=== PATIENT | male | born 1965 | race African-American/Black ===

== ENCOUNTER → 2016-12-13 | Outpatient (CLI) | payer OTHER, BC ==
[2016-12-13 11:12] LABS: PARTIAL THROMBOPLASTIN TIME 42.9 SEC (23.5-35.8); PROTHROMBIN TIME 21.9 SEC (11.4-15.4)
== END ==
LOC: OD 09:58
PROVIDERS: ATTEND Family Medicine
DX: Z79.01 Long term (current) use of anticoagulants (principal)
CPT/HCPCS: 36415; 85610; 85730

== ENCOUNTER → 2018-08-12 | Outpatient (CLI) | payer BC ==
--- NOTE | 2018-08-12 17:10 | XCELERA REPORT ---
[address] [facility] [address] Lower Extremity Venous Evaluation Procedure: Color flow and duplex imaging bilaterally of the veins of the lower extremities as well as the Common Femoral veins. Right Sided Venous Evaluation Normal vessel filling wall to wall, compression and augmentation as well as Colour flow down to the infrageniculate veins. Left Sided Venous Evaluation Intraluminal trabecula seen in the Popliteal vein on gray scale and lour flow. Normal flow around these. Otherwise normal vessel filling wall to wall, compression and augmentation as well as Colour flow down to the infrageniculate veins. Interpretation Summary No duplex evidence of DVT or obstruction in the bilateral lower extremities. Intra luminal scar on left , as note, likely a residual of prior DVT. Name: BRIANA AYALA Age: 52 yrs Gender: Male : 1965 Patient Status: Outpatient Patient Location: Study Date: 08/12/2018 01:12 PM Reason For Study: PAIN IN BOTH LEGS Ordering Physician: MAURICIO ORTIZ Performed By: Chelly Eller : MAURICIO ORTIZ > Ray Schroeder
== END ==
LOC: SP 12:39
PROVIDERS: ATTEND Family Medicine
DX: M79.605 Pain in left leg (principal); M79.604 Pain in right leg
CPT/HCPCS: 93970

== ENCOUNTER 2018-09-20 13:13 | Emergency (ER) | payer BC ==
[2018-09-20 13:24] VITALS: BP 158/98
[2018-09-20] MEDS ORDERED: IBUPROFEN 800 MG TABLET PO ONE (13:55)
--- NOTE | 2018-09-20 14:16 | ER Document Report ---
HPI - HPI Patient complains to provider of: Bilateral shoulder pain Time Seen by Provider: 09/20/18 13:45 Pain Level: 2 Context: Patient is a 52-year-old male history of bilateral rotator cuff injuries with repair. States he has bilateral shoulder pain for the last couple of days. 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 States a few days ago he was lifting a large piece of metal over his head. States he feels as though the pain started after that incident. Patient states he has pain in bilateral shoulders more so when he tries to raise his arms. Patient's denying any numbness or tingling in any extremity. Patient's denying any neck pain or back pain. - CONSTITUTIONAL Constitutional: DENIES: Fever, Chills - NEURO Neurology: DENIES: Headache, Weakness, Vision blurred, Dizzinesss / Vertigo - CARDIOVASCULAR Cardiovascular: DENIES: Chest pain - RESPIRATORY Respiratory: DENIES: Trouble Breathing, Coughing - MUSCULOSKELETAL Musculoskeletal: REPORTS: Extremity pain - bilateral shoulder pain Past Medical History - General Information source: Patient - Social History Smoking Status: Never Smoker Family History: Reviewed & Not Pertinent Patient has suicidal ideation: No Patient has homicidal ideation: No - Past Medical History Cardiac Medical History: Reports: Hx Hypertension Renal/ Medical History: Denies: Hx Peritoneal Dialysis Past Surgical History: Reports: Hx Orthopedic Surgery - drake. shoulders. left hand. left foot - Immunizations Hx Diphtheria, Pertussis, Tetanus Vaccination: Yes Vertical Provider Document - CONSTITUTIONAL Agree With Documented VS: Yes Notes: GENERAL: Alert, interacts well. No acute distress. HEAD: Normocephalic, atraumatic. EYES: Pupils equal, round, and reactive to light. Extraocular movements intact. ENT: Oral mucosa moist, tongue midline. NECK: Full range of motion. Supple. Trachea midline. LUNGS: Clear to auscultation bilaterally, no wheezes, rales, or rhonchi. No respiratory distress. HEART: Regular rate and rhythm. No murmur ABDOMEN: Soft, non-tender. Non-distended. Bowel sounds present in all 4 quadrants. EXTREMITIES: Moves all 4 extremities spontaneously. No edema, normal radial and dorsalis pedis pulses bilaterally. No cyanosis. Decreased range of motion noted bilateral shoulder secondary due to pain. 5 out of 5 strength noted all 4 extremities. Patient has full range of motion bilateral shoulders passive not active. No erythema, ecchymosis, crepitus about bilateral shoulders. BACK: no cervical, thoracic, lumbar midline tenderness. No saddle anesthesia, normal distal neurovascular exam. NEUROLOGICAL: Alert and oriented x3. Normal speech. cranial nerves II through XII grossly intact. PSYCH: Normal affect, normal mood. SKIN: Warm, dry, normal turgor. No rashes or lesions noted. - INFECTION CONTROL TRAVEL OUTSIDE OF THE [place] IN LAST 30 DAYS: No Course - Re-evaluation Re-evalutation: 09/20/18 14:51 Shoulder X-Ray 09/20/18 13:55 IMPRESSION: Postsurgical changes of both shoulders. Bilateral AC arthrosis. Discussed close follow-up with orthopedics for continued care. Discussed frozen shoulder should he attempts to buy an immobilizer [id number]. Discussed shoulder exercises [id number] Tylenol Motrin. At this time will discharge with return precautions and follow-up recommendations. Verbal discharge instructions given a the bedside and opportunity for questions given. Medication warnings reviewed. Patient is in agreement with this plan and has verbalized understanding of return precautions and the need for primary care follow-up in the next 24-72 hours. This medical record was dictated with voice recognizing software. There may be grammatical, syntax errors that are unintended. - Vital Signs Vital signs: Temp Pulse Resp BP Pulse Ox 98.7 F 101 H 20 158/98 H 96 09/20/18 13:23 09/20/18 13:23 09/20/18 13:23 09/20/18 13:23 09/20/18 13:23 Discharge - Discharge Clinical Impression: Shoulder pain, bilateral Qualifiers: Chronicity: acute Qualified Code(s): M25.511 - Pain in right shoulder Condition: Stable Disposition: HOME, SELF-CARE Instructions: Exercise Program for the Shoulder ([facility]), Shoulder Injury ([facility]) Additional Instructions: As we discussed x-rays of bilateral shoulders revealed no signs of broken bones. Please make sure you follow-up with orthopedics, phone numbers will be provided in this packet. Please also make sure taking [id number] Tylenol or Motrin for generalized pain. Please return to the emergency department for any further concerns. Shoulder Injury You have injured your shoulder. This usually results from stretching or tearing of the tendons during trauma. Time and protection are required in order to heal properly. Many injuries are quite disabling, and should be taken seriously. Initial treatment includes cold packs and a sling to rest the shoulder. The physician has assessed the seriousness of your injury, and has outlined a treatment plan. Understand that this treatment may change, depending on how you progress. If a re-examination was recommended, it is important that you follow up as instructed. Some shoulder injuries (such as partial tear of the rotator cuff) are only suspected after you've failed to improve. Call us if there's severe pain, numbness, or loss of function. Forms: Return to Work Referrals: MAURICIO ORTIZ MD [Primary Care Provider] - Follow up as needed WILMER TIDWELL MD [ACTIVE STAFF] - Follow up as needed
--- NOTE | 2018-09-20 14:30 | RADIOLOGY REPORT (SQ) ---
EXAM DESCRIPTION: SHOULDER BILAT 2 OR MORE VIEWS COMPLETED DATE/TIME: 09/20/2018 2:15 pm REASON FOR STUDY: pain COMPARISON: None. NUMBER OF VIEWS: Three views. TECHNIQUE: Internal rotation, external rotation, and Y view images acquired of both shoulders. LIMITATIONS: None. FINDINGS: Right shoulder : Postsurgical changes of the right humerus. Right AC arthrosis. Calcifications superior to the gleno humeral joint with loose bodies not excluded. Left shoulder: Postsurgical changes left shoulder. Left AC arthrosis. Subluxation of left humeral head superiorly consistent with chronic rotator cuff degeneration. Peritendinitis calcarii of left shoulder. IMPRESSION: Postsurgical changes of both shoulders. Bilateral AC arthrosis. TECHNICAL DOCUMENTATION: JOB ID: [id number] [employer]- All Rights Reserved Reading location - IP/workstation name: [email or web address]
== END 2018-09-20 14:50 | disposition home or self-care (01) ==
LOC: ER 13:13
DX: M25.511 Pain in right shoulder (principal); M25.512 Pain in left shoulder; I10 Essential (primary) hypertension
CPT/HCPCS: 99283

== ENCOUNTER 2018-10-26 11:08 | Emergency (ER) | payer BC ==
[2018-10-26] MEDS ORDERED: FAMOTIDINE 20 MG TABLET PO ONE (11:50)
[2018-10-26] MEDS ORDERED: PREDNISONE 20 MG TABLET PO ONE (11:50)
--- NOTE | 2018-10-26 11:52 | ER Document Report ---
HPI - HPI Patient complains to provider of: Hives Time Seen by Provider: 10/26/18 11:41 Onset: Yesterday Onset/Duration: Better Pain Level: 0 Context: Patient complains of hives that started yesterday. Patient is concerned he may be having a reaction to his medications. He was recently started on naproxen and metformin ER which she has had before. Patient denies any chest pain shortness of breath nausea or vomiting. Patient denies any difficulty breathing. Associated Symptoms: denies: Nonproductive cough, Productive cough, Shortness of breath Exacerbated by: Denies Relieved by: Denies Similar symptoms previously: No Recently seen / treated by doctor: Yes - ROS ROS below otherwise negative: Yes Systems Reviewed and Negative: Yes All other systems reviewed and negative - EENT EENT: DENIES: Sore Throat, Congestion - CARDIOVASCULAR Cardiovascular: DENIES: Chest pain - RESPIRATORY Respiratory: DENIES: Trouble Breathing, Coughing - DERM Skin Color: Normal Skin Problems: None Past Medical History - General Information source: Patient - Social History Smoking Status: Never Smoker Frequency of alcohol use: None Drug Abuse: None Occupation: None Lives with: Family Family History: Reviewed & Not Pertinent - Past Medical History Cardiac Medical History: Reports: Hx Hypertension Endocrine Medical History: Reports: Hx Diabetes Mellitus Type 2 Renal/ Medical History: Denies: Hx Peritoneal Dialysis Musculoskeletal Medical History: Reports Hx Arthritis Past Surgical History: Reports: Hx Orthopedic Surgery - drake. shoulders. left hand. left foot - Immunizations Hx Diphtheria, Pertussis, Tetanus Vaccination: Yes Vertical Provider Document - CONSTITUTIONAL Agree With Documented VS: Yes Exam Limitations: No Limitations General Appearance: WD/WN, No Apparent Distress - INFECTION CONTROL TRAVEL OUTSIDE OF THE [place] IN LAST 30 DAYS: No - HEENT HEENT: Atraumatic, Normal ENT Exam, Normocephalic Notes: No angioedema, no potential airway compromise - NECK Neck: Normal Inspection, Supple. negative: Lymphadenopathy-Left, Lymphadenopathy-Right - RESPIRATORY Respiratory: Breath Sounds Normal, No Respiratory Distress - CARDIOVASCULAR Cardiovascular: Regular Rate, Regular Rhythm, No Murmur - BACK Back: Normal Inspection - MUSCULOSKELETAL/EXTREMETIES Musculoskeletal/Extremeties: MAEW - NEURO Level of Consciousness: Awake, Alert, Appropriate Motor/Sensory: No Motor Deficit, No Sensory Deficit - DERM Integumentary: Warm, Dry Notes: Few scattered faint urticarial lesions to right upper extremity and posterior trunk Course - Re-evaluation Re-evalutation: 10/26/18 11:51 No concern for anaphylaxis. No concern for any potential airway compromise. Patient encouraged to contact his doctor to discuss any medication changes as he is concerned he is having allergic reaction to the naproxen and metformin. - Vital Signs Vital signs: Temp Pulse Resp BP Pulse Ox 98.5 F 97 20 164/91 H 99 10/26/18 11:11 10/26/18 11:11 10/26/18 11:11 10/26/18 11:11 10/26/18 11:11 Discharge - Discharge Clinical Impression: Urticaria Condition: Stable Disposition: HOME, SELF-CARE Instructions: Acute Urticaria ([facility]), Steroid Medication Additional Instructions: Return immediately for any new or worsening symptoms Followup with your primary care provider, call today to discuss your medication regiment and your symptoms that you are having. Prescriptions: Hydroxyzine HCl [Atarax 25 mg Tablet] 1 - 2 tab PO QID PRN #20 tablet PRN Reason: Prednisone [Deltasone 20 mg Tablet] 3 tab PO DAILY 5 Days tablet Famotidine [Pepcid 20 mg Tablet] 20 mg PO BID #12 tablet Referrals: MAURCIIO ORTIZ MD [Primary Care Provider] - Follow up tomorrow
[2018-10-26 12:29] VITALS: BP 144/84
== END 2018-10-26 12:29 | disposition home or self-care (01) ==
LOC: ER 11:08
DX: L50.9 Urticaria, unspecified (principal); I10 Essential (primary) hypertension; E11.9 Type 2 diabetes mellitus without complications
CPT/HCPCS: 99283; J7512

== ENCOUNTER → 2018-12-23 | Outpatient (CLI) | payer BC ==
[2018-12-23 17:33] LABS: ANION GAP 12 (5-19); BLOOD UREA NITROGEN 16 mg/dL (7-20); CALCIUM 10.4 mg/dL (8.4-10.2); CARBON DIOXIDE 27 mmol/L (22-30); CHLORIDE 97 mmol/L (98-107); POTASSIUM 4.7 mmol/L (3.6-5.0)
[2018-12-23 18:01] LABS: GLUCOSE 468 mg/dL (75-110)
== END ==
LOC: OD 15:59
PROVIDERS: ATTEND Physician Assistant
DX: R73.09 Other abnormal glucose (principal)
CPT/HCPCS: 36415; 80048

== ENCOUNTER → 2019-03-05 | Outpatient (CLI) | payer BC ==
--- NOTE | 2019-03-05 11:08 | RADIOLOGY REPORT (SQ) ---
EXAM DESCRIPTION: U/S ABD AORTIC SCREENING COMPLETED DATE/TIME: 03/05/2019 8:47 am REASON FOR STUDY: SCREENING FOR CARDIOVASCULAR DISORDERS (Z13.6) I71.9 AORTIC ANEURYSM OF UNSPECIFI ED SITE, WITHOUT RUPTURE COMPARISON: CT of the abdomen and pelvis with contrast from 05/22/2015. TECHNIQUE: Static and dynamic grayscale images acquired of the aorta and stored on PACs. Selected co светлана Doppler and spectral images recorded. LIMITATIONS: None. FINDINGS: AORTIC CALIBER MAXIMAL PROXIMAL: 2.6 cm. MID: 2.3 cm. DISTAL: 2.1 cm. ILIAC DIAMETER RIGHT: 1.5 cm. LEFT: 1.5 cm. OTHER: No other finding. IMPRESSION: No abdominal aortic aneurysm. COMMENT: Aortic aneurysm imaging followup: 2.6-2.9 cm Every 5 years* *Based upon the Society for Vascular Surgery Guidelines: J Vasc Surg. 2009 Oct;50(4 Suppl):S2-49 *For aortas of maximum diameter of 2.6-2.9 cm meeting the criteria for AAA (?1.5 x proximal normal se gment) TECHNICAL DOCUMENTATION: JOB ID: [id number]- All Rights Reserved Reading location - IP/workstation name: [email or web address]
== END ==
LOC: RAD 07:56
PROVIDERS: ATTEND Physician Assistant
DX: Z13.6 Encounter for screening for cardiovascular disorders (principal)
CPT/HCPCS: 76706